=== PATIENT | male | born 1950 | race Caucasian/White ===

== ENCOUNTER 2021-08-17 22:21 | Emergency (ER) | payer MEDICARE, BC ==
[2021-08-17] MEDS ORDERED: Proparacaine 0.5% Ophth Soln 15 ML Bottle EYELF ONE (23:03)
== END 2021-08-18 00:43 | disposition home or self-care (01) ==
LOC: JP.ED 22:21
DX: S05.8X2A Other injuries of left eye and orbit, initial encounter (principal); H10.89 Other conjunctivitis; H54.7 Unspecified visual loss; I10 Essential (primary) hypertension; E78.00 Pure hypercholesterolemia, unspecified; J44.9 Chronic obstructive pulmonary disease, unspecified; Z79.899 Other long term (current) drug therapy; Z72.0 Tobacco use
CPT/HCPCS: 99282; 99283; A9270-GY

== ENCOUNTER 2022-03-29 16:47 | Emergency (ER) | payer MEDICARE, BC ==
[2022-03-29] MEDS ORDERED: Sodium Chloride 0.9% 10 ML Syringe FLUSH PRN (16:58)
[2022-03-29] MEDS ORDERED: Sodium Chloride 0.9% 500 ML IV ONE (17:00)
[2022-03-29] MEDS ORDERED: Aspirin 81 MG Tab.Chew PO ONE (17:22)
[2022-03-29] MEDS ORDERED: fentaNYL 50 MCG/ML SDV IVPUSH ONE (17:22)
[2022-03-29 17:39] LABS: ESTIMATED GFR 72 mL/min (>60)
== END 2022-03-29 19:50 | disposition home or self-care (01) ==
LOC: JP.ED 16:47
DX: I48.20 Chronic atrial fibrillation, unspecified (principal); R07.9 Chest pain, unspecified; E78.00 Pure hypercholesterolemia, unspecified; I10 Essential (primary) hypertension; J44.9 Chronic obstructive pulmonary disease, unspecified; G43.909 Migraine, unspecified, not intractable, without status migrainosus; Z79.899 Other long term (current) drug therapy; Z79.01 Long term (current) use of anticoagulants
CPT/HCPCS: 36415; 71045; 80048; 80162; 83735; 84443; 84484; 85025; 85610; 93005; 96360; 99285; A9270; J3490; J7040

== ENCOUNTER 2023-02-04 14:41 | Emergency (ER) | payer MEDICARE, BC ==
[2023-02-04] MEDS ORDERED: Sodium Chloride 0.9% 1,000 ML IV SCH ×2 (15:00→16:00)
[2023-02-04] MEDS ORDERED: Metoprolol Tartrate 5 MG in Sodium Chloride 0.9% 50 ML IV ONE (15:01)
[2023-02-04 15:05] LABS: BASOPHILS ABSOLUTE AUTO 0.04 K/uL (0.00-0.10); BASOPHILS PERCENT AUTO 0.5 % (0.1-1.3); EOSINOPHILS ABSOLUTE AUTO 0.07 K/uL (0.00-0.40); EOSINOPHILS PERCENT AUTO 0.9 % (0.0-5.4); HEMATOCRIT 49.5 % (38.4-49.7); HEMOGLOBIN 17.3 g/dL (12.9-16.9); IMMATURE GRAN ABSOLUTE AUTO 0.04 K/uL (0.00-0.23); IMMATURE GRAN PERCENT AUTO 0.5 % (0.0-0.7); LYMPHOCYTES ABSOLUTE AUTO 2.47 K/uL (0.8-3.3); LYMPHOCYTES PERCENT AUTO 33.1 % (11.4-47.7); MEAN CORPUSCULAR HEMOGLOBIN 31.8 pg (31.6-35.5); MEAN CORPUSCULAR HGB CONC 34.9 g/dL (31.6-35.5); MONOCYTES ABSOLUTE AUTO 1.58 K/uL (0.20-0.90); MONOCYTES PERCENT AUTO 21.2 % (3.3-12.6); NEUTROPHILS ABSOLUTE AUTO 3.26 K/uL (1.0-7.6); NEUTROPHILS PERCENT AUTO 43.8 % (40.0-78.1); PLATELET COUNT,PLT 216 K/uL (130-375); RED BLOOD CELL COUNT 5.44 M/uL (4.14-5.76); WHITE BLOOD CELL COUNT,WBC 7.5 K/uL (3.2-11.0)
[2023-02-04 15:07] LABS: BASE EXCESS VENOUS 1.6 mm/L; BICARBONATE,VENOUS 26.8 mmol/L; METHEMOGLOBIN 0.8 %; O2 SATURATION VENOUS 77.3; OXYHEMOGLOBIN 75.1 %; PCO2 VENOUS 45.5 mm/Hg; PH,VENOUS 7.388 (7.350-7.450); PO2 VENOUS 45.5 mm/Hg
[2023-02-04] MEDS ORDERED: Metoprolol Tartrate 5 MG/5 ML SDV IVPUSH ONE (15:09)
[2023-02-04 15:26] LABS: INR 2.5; PROTHROMBIN TIME 24.3 sec (9.2-10.6)
[2023-02-04 15:43] LABS: ALANINE AMINOTRANSFERASE,ALT 33 U/L (12-78); ALBUMIN 3.7 g/dL (3.4-5.0); ALKALINE PHOSPHATASE 91 U/L (46-116); ASPARTATE AMNIOTRANSFERASE,AST 35 U/L (15-37); BILIRUBIN TOTAL 0.5 mg/dL (0.2-1.0); BLOOD UREA NITROGEN,BUN 20 mg/dL (7-18); CALCIUM 8.5 mg/dL (8.5-10.1); CARBON DIOXIDE,CO2 27 mmol/L (21-32); CHLORIDE,CL 99 mmol/L (100-108); EST CRCL DRUG DOSING (CG) 60.54 mL/min; ESTIMATED GFR 80 mL/min (>60); GLUCOSE RANDOM 101 mg/dL (74-106); POTASSIUM,K 3.9 mmol/L (3.6-5.2); PRO B-TYPE NATRIUR PEPT,BNPPRO 197 pg/mL (5-125); PROTEIN TOTAL,TP 7.5 g/dL (6.4-8.2); SODIUM,NA 137 mmol/L (140-148)
[2023-02-04 15:45] LABS: ANION GAP 14.9 mmol/L (5.0-14.0)
[2023-02-04 16:02] LABS: INFLUENZA A NAA NEGATIVE (NEGATIVE); INFLUENZA B NAA NEGATIVE (NEGATIVE); RESPIRATORY SYNCYTIAL VIR NAA NEGATIVE (NEGATIVE)
[2023-02-04 16:04] LABS: CORONAVIRUS COVID-19 NAA POSITIVE (NEGATIVE)
== END 2023-02-04 18:06 | disposition home or self-care (01) ==
LOC: JP.ED 14:41
DX: U07.1 COVID-19 (principal); I48.20 Chronic atrial fibrillation, unspecified; E86.0 Dehydration; F17.210 Nicotine dependence, cigarettes, uncomplicated; E78.00 Pure hypercholesterolemia, unspecified; I10 Essential (primary) hypertension; Z79.899 Other long term (current) drug therapy; Z79.01 Long term (current) use of anticoagulants
CPT/HCPCS: 0241U; 36415; 71045; 80053; 80162; 80307; 82803; 83605; 83880; 84145; 84443; 84484; 85025; 85610; 93005; 93010; 96361; 96374; 99284; J3490; J7030